=== PATIENT | female | born 1975 | race Caucasian/White ===

== ENCOUNTER 2016-08-15 15:57 | Emergency (ER) | payer MEDICAID ==
[2015-08-19 10:46] VITALS: BMI 26.3
[~2016-08-15 15:57] MED LIST: CARAFATE1 G PO; DEPAKOTE250 MG PO; DEPAKOTE500 MG PO; HYDROCODONE-APA1 TAB PO; MEDROL DOSE PACK4 MG PO; NORCO 5/325 TAB1 TA1 PO; NP THYROID30 MG PO; OMEPRAZOLE40 MG PO; PERCOCET 10/3251 TA1 PO; PHENERGAN25 M1 PO; PROAIR HFA8.5 GM INH; ROBAXIN-750750 MG PO; VALIUM10 MG PO
[2016-08-15 17:06] LABS: BASOPHILS 0.3 % (0-2); EOSINOPHILS 0.8 % (0-7); HEMATOCRIT 42.7 % (36.0-48.0); HEMOGLOBIN 15.1 g/dL (12-16); IMMATURE GRANULOCYTES 0.3 % (0-5); LYMPHOCYTES 22.3 % (15-50); MCH 30.9 pg (26.0-34.0); MCHC 35.4 g/dL (31.0-37.0); MCV 87.3 fL (80.0-100.0); MEAN PLATELET VOLUME 10.4 fL (7.4-10.4); MONOCYTES 6.1 % (2-11); NEUTROPHILS 70.2 % (40-80); RBC 4.89 10x6/uL (4.00-5.40); RDW 12.1 % (11.5-14.5); WBC 6.6 10x3/uL (4.8-10.8)
[2016-08-15 17:07] LABS: PLATELET COUNT 238 10x3/uL (130-400)
[2016-08-15 17:21] LABS: ALBUMIN 3.7 g/dL (3.4-5.0); ANION GAP 11.1 mmol/L (8-16); BILIRUBIN - TOTAL 0.46 mg/dL (0.2-1.3); CALCIUM 9.2 mg/dL (8.5-10.1); CARBON DIOXIDE 28.2 mmol/L (21.0-32.0); CREATININE - SERUM 0.9 mg/dL (0.6-1.3); POTASSIUM - SERUM 4.3 mmol/L (3.5-5.1); PROTEIN - SERUM 7.2 g/dL (6.4-8.2); VALPROIC ACID (DEPAKOTE) 0.8 ug/mL (50.0-100.0)
[2016-08-15 17:46] LABS: APPEARANCE CLEAR (CLEAR); BACTERIA FEW /hpf (NONE SEEN); BILIRUBIN NEGATIVE (NEGATIVE); COLOR YELLOW (YELLOW); EPITHELIAL CELLS 0-5 /hpf (0-5); GLUCOSE NEGATIVE (NEGATIVE); KETONE NEGATIVE (NEGATIVE); LEUKOCYTE ESTERASE NEGATIVE (NEGATIVE); NITRITE NEGATIVE (NEGATIVE); PROTEIN NEGATIVE (NEGATIVE); RED CELLS - URINE 0-5 /hpf (0-5); UROBILINOGEN NORMAL (NORMAL); WHITE CELLS - URINE 0-5 /hpf (0-5)
[2016-08-15 19:58] LABS: UDS - AMPHET NEGATIVE QUAL (NEGATIVE); UDS - BARB NEGATIVE QUAL (NEGATIVE); UDS - BENZO POSITIVE QUAL (NEGATIVE); UDS - COCAINE NEGATIVE QUAL (NEGATIVE); UDS - METH NEGATIVE QUAL (NEGATIVE); UDS - OPIATE NEGATIVE QUAL (NEGATIVE); UDS - PCP NEGATIVE QUAL (NEGATIVE); UDS - THC POSITIVE QUAL (NEGATIVE)
== END 2016-08-15 18:45 | disposition home or self-care (01) ==
LOC: D.ER 15:57
PROVIDERS: Emergency Medicine
DX: G40.909 Epilepsy, unspecified, not intractable, without status epilepticus (principal); F41.9 Anxiety disorder, unspecified; F31.89 Other bipolar disorder; F17.200 Nicotine dependence, unspecified, uncomplicated

== ENCOUNTER 2016-12-04 17:19 | Emergency (ER) | payer MEDICAID ==
[2015-08-19 10:46] VITALS: BMI 26.3
== END 2016-12-04 18:52 | disposition home or self-care (01) ==
LOC: D.ER 17:19
DX: J20.9 Acute bronchitis, unspecified (principal); J01.90 Acute sinusitis, unspecified; F17.200 Nicotine dependence, unspecified, uncomplicated

== ENCOUNTER 2017-01-20 20:18 | Emergency (ER) | payer MEDICAID ==
[2015-08-19 10:46] VITALS: BMI 26.3
== END 2017-01-21 00:05 | disposition home or self-care (01) ==
LOC: D.ER 20:18
DX: S16.1XXA Strain of muscle, fascia and tendon at neck level, initial encounter (principal); W19.XXXA Unspecified fall, initial encounter; Y93.89 Activity, other specified; Y92.029 Unspecified place in mobile home as the place of occurrence of the external cause; F17.200 Nicotine dependence, unspecified, uncomplicated

== ENCOUNTER 2017-03-15 10:45 | Emergency (ER) | payer MEDICAID ==
[2015-08-19 10:46] VITALS: BMI 26.3
== END 2017-03-15 13:30 | disposition home or self-care (01) ==
LOC: D.ER 10:45
DX: R50.9 Fever, unspecified (principal); J01.90 Acute sinusitis, unspecified; J20.9 Acute bronchitis, unspecified; H66.92 Otitis media, unspecified, left ear; F17.200 Nicotine dependence, unspecified, uncomplicated

== ENCOUNTER 2017-03-31 18:09 | Emergency (ER) | payer MEDICAID ==
[2015-08-19 10:46] VITALS: BMI 26.3
[2017-03-31 20:37] LABS: APPEARANCE CLEAR (CLEAR); BILIRUBIN NEGATIVE (NEGATIVE); COLOR DK YELLOW (YELLOW); GLUCOSE NEGATIVE (NEGATIVE); KETONE NEGATIVE (NEGATIVE); NITRITE NEGATIVE (NEGATIVE); PROTEIN NEGATIVE (NEGATIVE); SPECIFIC GRAVITY 1.015 (1.005-1.020); UROBILINOGEN NORMAL (NORMAL)
[2017-03-31 20:39] LABS: EPITHELIAL CELLS 0-5 /hpf (0-5); RED CELLS - URINE 0-5 /hpf (0-5)
[2017-03-31 21:38] LABS: BASOPHILS 0.3 % (0-2); EOSINOPHILS 1.1 % (0-7); HEMATOCRIT 41.1 % (36.0-48.0); IMMATURE GRANULOCYTES 0.4 % (0-5); LYMPHOCYTES 22.5 % (15-50); MCH 30.6 pg (26.0-34.0); MCHC 34.1 g/dL (31.0-37.0); MCV 89.7 fL (80.0-100.0); MEAN PLATELET VOLUME 11.7 fL (7.4-10.4); MONOCYTES 6.8 % (2-11); NEUTROPHILS 68.9 % (40-80); PLATELET COUNT 210 10x3/uL (130-400); RBC 4.58 10x6/uL (4.00-5.40); RDW 12.7 % (11.5-14.5); WBC 10.2 10x3/uL (4.8-10.8)
[2017-03-31 21:48] LABS: ALBUMIN 3.4 g/dL (3.4-5.0); ALKALINE PHOSPHATASE 60 U/L (46-116); ALT (SGPT) 17 U/L (10-68); BILIRUBIN - TOTAL 0.41 mg/dL (0.2-1.3); CALC OSMOLALITY 286 mosm/kg (275-300); CALCIUM 8.9 mg/dL (8.5-10.1); CARBON DIOXIDE 26.3 mmol/L (21.0-32.0); CHLORIDE - SERUM 106 mmol/L (98-107); CREATININE - SERUM 0.8 mg/dL (0.6-1.3); GLUCOSE 112 mg/dL (74-106); POTASSIUM - SERUM 3.7 mmol/L (3.5-5.1); PROTEIN - SERUM 6.8 g/dL (6.4-8.2); SODIUM 143 mmol/L (136-145); UREA NITROGEN 16 mg/dL (7-18); eGFR NON AFRICAN AMERICAN 85 mL/min (90-120)
== END 2017-03-31 22:25 | disposition home or self-care (01) ==
LOC: D.ER 18:09
PROVIDERS: Nurse Practitioner Family
DX: G40.909 Epilepsy, unspecified, not intractable, without status epilepticus (principal); S02.2XXA Fracture of nasal bones, initial encounter for closed fracture; W19.XXXA Unspecified fall, initial encounter; Y93.89 Activity, other specified; Y92.019 Unspecified place in single-family (private) house as the place of occurrence of the external cause; F17.200 Nicotine dependence, unspecified, uncomplicated

== ENCOUNTER → 2017-06-27 09:40 | Outpatient (CLI) | payer MEDICAID ==
[2015-08-19 10:46] VITALS: BMI 26.3
== END | disposition home or self-care (01) ==
LOC: D.MRI 09:40
DX: M54.2 Cervicalgia (principal)

== ENCOUNTER → 2017-12-10 14:59 | Outpatient (CLI) | payer MEDICAID ==
[2015-08-19 10:46] VITALS: BMI 26.3
== END | disposition home or self-care (01) ==
LOC: D.MRI 14:59
DX: M54.12 Radiculopathy, cervical region (principal)

== ENCOUNTER 2018-01-01 06:00 | Day surgery (SDC) | payer MEDICAID ==
[2017-12-31 15:47] LABS: HEMATOCRIT 39.7 % (36.0-48.0); HEMOGLOBIN 14.2 g/dL (12-16); MCH 31.3 pg (26.0-34.0); MCHC 35.8 g/dL (31.0-37.0); MCV 87.6 fL (80.0-100.0); MEAN PLATELET VOLUME 10.7 fL (7.4-10.4); RBC 4.53 10x6/uL (4.00-5.40); RDW 12.5 % (11.5-14.5); WBC 6.7 10x3/uL (4.8-10.8)
[2018-01-01] VITALS (10 sets, daily range): BP systolic 90–124; BP diastolic 63–79; Ht 167.6 cm; Wt 92.3 kg
[~2018-01-01] VITALS: Ht 167.6 cm; Wt 92.3 kg
--- NOTE | ~2018-01-01 | OP ---
PATIENT NAME: NATACHA HOLLIS MEDICAL RECORD: [id number] :79 LOCATION:D.FORMERLY [facility] [place] ADMISSION DATE: SURGEON: OUSMANE STREETER MD DATE OF OPERATION: 01/01/2018 PREOPERATIVE DIAGNOSES: Osteophyte formation, disk herniation C4-C5 bilaterally, previous anterior cervical diskectomy and fusion at C5-C6. PROCEDURE: Removal of C5-C6 anterior cervical plate, anterior cervical diskectomy and fusion at C4-C5 with separate anterior cervical plate, PEEK interbody cage, stem cell bone allograft, removal of osteophytes, microscopic illumination. SURGEON: Ousmane Streeter MD PRIMARY CARE PHYSICIAN: Dr. Ruiz. DESCRIPTION AND TECHNIQUE: After induction of general endotracheal anesthesia, the patient was positioned supine on the operating table. Neck was prepped and draped in usual sterile fashion. Fluoroscopic x-ray and freer localized the C4-C5 interspace. A transverse skin incision was carried out from the midline to the sternocleidomastoid muscle. The platysma was divided with Bovie cautery. Using blunt and sharp dissection with Metzenbaum scissors, I proceeded in avascular plane medial to the carotid sheath. The C4-C5 interspace was identified. The C5-C6 plate was identified as well and dissected free from scar tissue surrounding the plate. Locking cams were loosened and the screws were removed without difficulty. The plate was removed as well. Next, the longus colli muscles were elevated from bodies of C4 and C5. A self-retaining retractor was placed deep in longus colli muscles. [place] distracting pins were placed in the bodies of C4 and C5. Osteophytes were removed anteriorly with Adson rongeurs. Under microscopic illumination, osteophytes were drilled away posteriorly with the Midas-Vasile drill. The bony endplates were prepared with curettes. The posterior longitudinal ligament was removed with Cloward rongeurs. Following this, the dura was decompressed well. Meticulous hemostasis was maintained throughout the wound. The wound was irrigated with copious amounts of lukewarm saline irrigant solution. A PEEK interbody cage was placed in the disk space under distraction. Prior to this, it was filled with bone stem cells. A 15 mm plate and screws used to span the C4-C5 interspace. Screws were 16 mm in length. The locking cams were tightened down with the screw heads. Good position of the hardware was confirmed with fluoroscopic x-ray. The platysma was reapproximated with interrupted 3-0 Vicryl suture. Subdermal layer was closed with interrupted 3-0 Vicryl suture. The skin was reapproximated with a Prineo Dermabond dressing. The patient was awakened in good condition and taken to recovery. All counts were reported as correct. Estimated blood loss was minimal. TRANSINT:[id number] Voice Confirmation ID: [id number] DOCUMENT ID: [id number] OPERATIVE REPORT [id number] NATACHA HOLLIS JOHN MD at 1403 CC: [id number] DICTATION DATE: 01/01/18 0936 REPRODUCTION ARTIST: 01/01/18 1230 [facility] 01/02/[address] [id number]
[~2018-01-01 06:00] MED LIST changes: +NORCO 10-325 TA1 TAB PO
[2018-01-02] VITALS (11 sets, daily range): BP systolic 84–133; BP diastolic 50–104
[2018-01-02] MEDS ORDERED: NORCO 10-325 TA1 TAB PO (11:04)
== END 2018-01-02 12:24 | disposition home or self-care (01) ==
LOC: D.ICU 06:00 → D.OPS 06:00 → D.PAN 07:30 → D.ICU 10:23 → D.OPS 01-02 12:24
PROVIDERS: Anesthesiology
DX: M50.221 Other cervical disc displacement at C4-C5 level (principal); Z98.1 Arthrodesis status; M25.78 Osteophyte, vertebrae; Z01.812 Encounter for preprocedural laboratory examination

== ENCOUNTER 2018-01-31 18:35 | Emergency (ER) | payer MEDICAID ==
[~2018-01-31] VITALS: Ht 167.6 cm; Wt 100.0 kg
[2018-01-31 19:18] VITALS: Ht 167.6 cm; Wt 100.0 kg
[2018-01-31] MEDS ORDERED: NORCO 7.5/325 T1 TA1 PO (20:01)
[2018-01-31 20:15] VITALS: BP 106/71
== END 2018-01-31 20:15 | disposition home or self-care (01) ==
LOC: D.ER 18:35
DX: S93.401A Sprain of unspecified ligament of right ankle, initial encounter (principal); W17.2XXA Fall into hole, initial encounter; Y93.89 Activity, other specified; Y92.019 Unspecified place in single-family (private) house as the place of occurrence of the external cause; G40.909 Epilepsy, unspecified, not intractable, without status epilepticus; F17.200 Nicotine dependence, unspecified, uncomplicated

== ENCOUNTER → 2018-03-19 13:58 | Outpatient (CLI) | payer MEDICAID ==
[2018-01-31 19:18] VITALS: BMI 35.6
[~2018-03-19 13:58] MED LIST changes: +NORCO 7.5/325 T1 TA1 PO
== END | disposition home or self-care (01) ==
LOC: D.MRI 13:58
DX: S46.002D Unspecified injury of muscle(s) and tendon(s) of the rotator cuff of left shoulder, subsequent encounter (principal); X58.XXXA Exposure to other specified factors, initial encounter

== ENCOUNTER → 2018-04-26 08:20 | Outpatient (CLI) | payer MEDICAID ==
[2018-01-31 19:18] VITALS: BMI 35.6
== END | disposition home or self-care (01) ==
LOC: D.MRI 07:30
DX: M25.512 Pain in left shoulder (principal)

== ENCOUNTER 2018-06-08 18:40 | Emergency (ER) | payer MEDICAID ==
[~2018-06-08] VITALS: Ht 167.6 cm; Wt 95.5 kg
[2018-06-08 18:44] VITALS: Ht 167.6 cm; Wt 95.5 kg
[2018-06-08] MEDS ORDERED: VOLTAREN75 MG PO (20:45)
[2018-06-08] MEDS ORDERED: BACLOFEN20 M1 PO (20:45)
[2018-06-08 21:32] VITALS: BP 146/68
== END 2018-06-08 21:32 | disposition home or self-care (01) ==
LOC: D.ER 18:40
DX: S49.92XA Unspecified injury of left shoulder and upper arm, initial encounter (principal); W10.9XXA Fall (on) (from) unspecified stairs and steps, initial encounter; Y93.89 Activity, other specified; Y92.019 Unspecified place in single-family (private) house as the place of occurrence of the external cause; S16.1XXA Strain of muscle, fascia and tendon at neck level, initial encounter

== ENCOUNTER 2018-09-14 14:50 | Emergency (ER) | payer MEDICAID ==
[~2018-09-14] VITALS: Ht 167.6 cm; Wt 81.2 kg
[~2018-09-14 14:50] MED LIST changes: +BACLOFEN20 M1 PO; +VOLTAREN75 MG PO
[2018-09-14 14:57] VITALS: Ht 167.6 cm; Wt 81.2 kg
[2018-09-14 15:51] LABS: ALBUMIN 3.6 g/dL (3.4-5.0); ANION GAP 16.9 mmol/L (8-16); BILIRUBIN - TOTAL 0.64 mg/dL (0.2-1.3); CALCIUM 9.1 mg/dL (8.5-10.1); CARBON DIOXIDE 23.7 mmol/L (21.0-32.0); POTASSIUM - SERUM 3.6 mmol/L (3.5-5.1); PROTEIN - SERUM 7.3 g/dL (6.4-8.2); VALPROIC ACID (DEPAKOTE) 24.5 ug/mL (50.0-100.0)
[2018-09-14 15:55] LABS: BASOPHILS 0.5 % (0-2); EOSINOPHILS 1.9 % (0-7); HEMATOCRIT 42.5 % (36.0-48.0); HEMOGLOBIN 15.3 g/dL (12-16); IMMATURE GRANULOCYTES 0.3 % (0-5); LYMPHOCYTES 34.3 % (15-50); MCH 31.4 pg (26.0-34.0); MCV 87.1 fL (80.0-100.0); MEAN PLATELET VOLUME 11.2 fL (7.4-10.4); MONOCYTES 6.7 % (2-11); NEUTROPHILS 56.3 % (40-80); PLATELET COUNT 227 10x3/uL (130-400); RBC 4.88 10x6/uL (4.00-5.40); RDW 12.2 % (11.5-14.5); WBC 6.5 10x3/uL (4.8-10.8)
[2018-09-14 15:56] LABS: APPEARANCE CLEAR (CLEAR); BILIRUBIN NEGATIVE (NEGATIVE); COLOR YELLOW (YELLOW); GLUCOSE NEGATIVE (NEGATIVE); KETONE NEGATIVE (NEGATIVE); NITRITE NEGATIVE (NEGATIVE); PROTEIN NEGATIVE (NEGATIVE); UROBILINOGEN NORMAL (NORMAL)
[2018-09-14] MEDS ORDERED: LINZESS290 MCG PO (16:24)
[2018-09-14 16:48] VITALS: BP 142/78
== END 2018-09-14 16:51 | disposition home or self-care (01) ==
LOC: D.ER 14:50
PROVIDERS: Emergency Medicine
DX: R10.30 Lower abdominal pain, unspecified (principal)

== ENCOUNTER 2019-12-28 03:25 | Emergency (ER) | payer MEDICAID ==
[~2019-12-28] VITALS: Ht 167.6 cm; Wt 80.9 kg
[~2019-12-28 03:25] MED LIST changes: +LINZESS290 MCG PO
[2019-12-28 03:28] VITALS: Ht 167.6 cm; Wt 80.9 kg
[2019-12-28] MEDS ORDERED: NAPROSYN500 MG PO (05:07)
[2019-12-28 06:42] VITALS: BP 128/79
== END 2019-12-28 06:43 | disposition home or self-care (01) ==
LOC: D.ER 03:25
DX: S62.002A Unspecified fracture of navicular [scaphoid] bone of left wrist, initial encounter for closed fracture (principal); S00.33XA Contusion of nose, initial encounter; E03.9 Hypothyroidism, unspecified; W22.8XXA Striking against or struck by other objects, initial encounter; Y93.9 Activity, unspecified; Y92.9 Unspecified place or not applicable

== ENCOUNTER 2020-01-21 14:34 | Emergency (ER) | payer MEDICAID ==
[~2020-01-21] VITALS: Ht 167.6 cm; Wt 82.3 kg
[~2020-01-21 14:34] MED LIST changes: +NAPROSYN500 MG PO
[2020-01-21 14:53] VITALS: Ht 167.6 cm; Wt 82.3 kg
[2020-01-21] MEDS ORDERED: HYDROCODON-ACE1 EA10 PO (16:24)
[2020-01-21 16:51] VITALS: BP 118/60
== END 2020-01-21 16:51 | disposition home or self-care (01) ==
LOC: D.ER 14:34
DX: M54.2 Cervicalgia (principal); E03.9 Hypothyroidism, unspecified; Z87.828 Personal history of other (healed) physical injury and trauma